=== PATIENT | male | born 1990 | race Two or more races ===

== ENCOUNTER 2018-07-25 18:09 | Observation (INO) | payer OTHER ==
[~2018-07-25] VITALS: Ht 180.3 cm; Wt 75.3 kg
[~2018-07-25 18:09] MED LIST: CEFOTETAN 1 GM ONE
[2018-07-25 18:59] LABS: MICROSCOPIC NOT IND
[2018-07-25 19:01] LABS: BASOPHILS # (AUTO) 0.04 x10^3/uL (0-0.1); BASOPHILS % (AUTO) 1 % (0-1); EOSINOPHILS # (AUTO) 0.15 x10^3/uL (0-0.4); EOSINOPHILS % (AUTO) 2 % (1-7); LYMPHOCYTES # (AUTO) 2.31 x10^3/uL (1-3.4); LYMPHOCYTES % (AUTO) 26 % (22-44); MD NO; MEAN CORPUSCULAR HEMOGLOBIN 34.5 pg (27.5-34.5); MEAN CORPUSCULAR HGB CONC 34.7 g/dL (33.2-36.2); MEAN CORPUSCULAR VOLUME 99.5 fL (81-97); MEAN PLATELET VOLUME 8.1 fL (7.4-10.4); MONOCYTES # (AUTO) 0.87 x10^3/uL (0.2-0.8); MONOCYTES % (AUTO) 10 % (2-9); NEUTROPHILS # (AUTO) 5.49 x10^3/uL (1.8-6.8); NEUTROPHILS % (AUTO) 62 % (42-75); PLATELET COUNT 239 x10^3/uL (130-400); RED BLOOD COUNT 4.89 x10^6/uL (4.38-5.82); RED CELL DISTRIBUTION WIDTH 12.8 % (9.4-14.8)
[2018-07-25 19:01] LABS: CULTURE INDICATED? NO
[2018-07-25 19:09] LABS: ALBUMIN 4.1 g/dL (3.4-5.0); ANION GAP 9 mmol/L (5-15); CALCIUM 9.1 mg/dL (8.5-10.1); CHLORIDE 104 mmol/L (98-107); CREATININE 1.05 mg/dL (0.7-1.3)
[2018-07-25] MEDS ORDERED: OMNIPAQUE 350 MG/ML, 100ML BOTTLE ONE (19:37)
[2018-07-25] MEDS ORDERED: CEFOTETAN PMX 1GM/50ML 50 ML IV ONE (20:00)
[2018-07-25] MEDS ORDERED: BUPIVACAINE/PF 0.5% ONE (20:08)
[2018-07-25] MEDS ORDERED: EPINEPHRINE 1 MG/ML, 1ML ONE (20:08)
[2018-07-25] MEDS ORDERED: PROPOFOL 10 MG/ML, 20ML ONE (20:28)
[2018-07-25] MEDS ORDERED: FENTANYL PF 250 MCG/5ML ONE (20:28)
[2018-07-25] MEDS ORDERED: ROCURONIUM 10MG/ML,5ML ONE (20:28)
[2018-07-25] MEDS ORDERED: DEXAMETHASONE 4 MG/ML, 1ML ONE (20:44)
[2018-07-25] MEDS ORDERED: ONDANSETRON 2MG/ML, 2ML ONE (20:57)
[2018-07-25] MEDS ORDERED: SUCCINYLCHOLINE 20 MG/ML, 10ML ONE (20:57)
[2018-07-25] MEDS ORDERED: KETOROLAC 30 MG/1 ML ONE (20:57)
[2018-07-25] MEDS ORDERED: hydrALAzine 20 MG/ML, 1ML IV PRN (21:00)
[2018-07-25] MEDS ORDERED: MEPERIDINE/PF 25MG/0.5ML IVPush PRN (21:00)
[2018-07-25] MEDS ORDERED: FENTANYL PF 100 MCG/2ML IV PRN (21:00)
[2018-07-25] MEDS ORDERED: PROMETHAZINE 25 MG/ML, 1ML IV PRN (21:00)
[2018-07-25] MEDS ORDERED: HYDROmorphone 1 MG/ML, 1ML IV PRN (21:00)
[2018-07-25] MEDS ORDERED: OXYcodone 5 MG/5 ML ORAL.SOL UDC PO PRN (21:00)
[2018-07-25] MEDS ORDERED: ACETAMINOPHEN 325 MG TABLET PO PRN (21:00)
[2018-07-25] MEDS ORDERED: LABETALOL 5MG/ML, 20ML IV PRN (21:00)
[2018-07-25] MEDS ORDERED: ONDANSETRON 2MG/ML, 2ML IV PRN ×2 (21:00→23:45)
[2018-07-25] MEDS ORDERED: ACETAMINOPHEN 650 MG/20.3 ML UDC ONE (21:36)
[2018-07-25] MEDS ORDERED: OXYcodone 5 MG/5 ML ORAL.SOL UDC ONE (21:37)
[2018-07-25] MEDS ORDERED: MEPERIDINE/PF 50 MG/ML ONE (21:40)
[2018-07-25] MEDS ORDERED: MORPHINE SULFATE 4 MG/ML, 1ML IV PRN (23:45)
[2018-07-26 00:19] VITALS: BP 114/63
[2018-07-26 00:42] VITALS: BP 118/65
[2018-07-26] MEDS: D5%-0.45NACL+KCL 20MEQ 1,000 ML IV SCH ×2 (01:48→09:59)
[2018-07-26] MEDS: OXYcodone/APAP 5/325MG TABLET PO PRN ×3 (01:54→12:25)
[2018-07-26 03:56] VITALS: BP 99/52
[2018-07-26 05:25] LABS: BASOPHILS % (AUTO) 0 % (0-1); EOSINOPHILS % (AUTO) 0 % (1-7); LYMPHOCYTES # (AUTO) 0.52 x10^3/uL (1-3.4); LYMPHOCYTES % (AUTO) 4 % (22-44); MD NO; MEAN CORPUSCULAR HEMOGLOBIN 34.3 pg (27.5-34.5); MEAN CORPUSCULAR HGB CONC 34.5 g/dL (33.2-36.2); MEAN CORPUSCULAR VOLUME 99.5 fL (81-97); MEAN PLATELET VOLUME 8.1 fL (7.4-10.4); MONOCYTES # (AUTO) 0.27 x10^3/uL (0.2-0.8); MONOCYTES % (AUTO) 2 % (2-9); NEUTROPHILS # (AUTO) 11.01 x10^3/uL (1.8-6.8); NEUTROPHILS % (AUTO) 93 % (42-75); PLATELET COUNT 209 x10^3/uL (130-400); RED CELL DISTRIBUTION WIDTH 12.7 % (9.4-14.8)
[2018-07-26 05:33] LABS: ANION GAP 11 mmol/L (5-15); CALCIUM 8.6 mg/dL (8.5-10.1); CHLORIDE 105 mmol/L (98-107)
[2018-07-26 05:34] LABS: CREATININE 1.15 mg/dL (0.7-1.3)
[2018-07-26 07:35] VITALS: BP 114/61
[2018-07-26] MEDS ORDERED: OXYC-302 PO (10:39)
[2018-07-26 12:10] VITALS: BP 114/65
== END 2018-07-26 13:00 | disposition home or self-care (01) ==
LOC: ED 18:34 → EDIP 21:19 → 4NOR 22:30 → DCLOUNGE 07-26 12:45
PROVIDERS: ADMIT Surgery; ATTEND Surgery
DX: K35.80 Unspecified acute appendicitis (principal); K66.8 Other specified disorders of peritoneum
CPT/HCPCS: 36415; 44970; 74177; 80048; 81003; 82040; 85025; 88304; 99285; G0378; J0171; J0330; J1100; J1885; J2175; J2405; J2704; J3010; J3480; J3490; Q9967